=== PATIENT | female | born 1970 | race American Indian/Alaskan Native ===

== ENCOUNTER 2017-01-13 18:16 | Inpatient (IN) | payer OTHER ==
[2017-01-13 19:35] LABS: Basophils % (Auto) 0.2 % (0.0-1.8); Eosinophils % (Auto) 0.3 % (0.0-4.3); Hemoglobin 13.1 gm/dl (10.1-14.3); Mean Corpuscular HGB Conc 33 % (30-34); Mean Corpuscular Hemoglobin 29 pg (28-32); Mean Corpuscular Volume 89 fl (79-97); Platelet Count 341 K/mm3 (140-440); Red Blood Count 4.49 M/mm3 (3.65-5.03); Red Cell Distribution Width 12.8 % (13.2-15.2); White Blood Count 12.2 K/mm3 (4.5-11.0)
[2017-01-13 19:55] LABS: Alanine Aminotransferase 56 units/L (7-56); Albumin 3.9 g/dL (3.9-5); Albumin/Globulin Ratio 1.1 %; Alkaline Phosphatase 82 units/L (35-129); Anion Gap 16 mmol/L; Blood Urea Nitrogen 11 mg/dL (7-17); Calcium 9.2 mg/dL (8.4-10.2); Carbon Dioxide 27 mmol/L (22-30); Chloride 102.3 mmol/L (98-107); Glucose 158 mg/dL (65-100); Sodium 141 mmol/L (137-145); Total Protein 7.3 g/dL (6.3-8.2)
[2017-01-13 20:08] LABS: Lipase 1034 units/L (13-60)
[2017-01-13] MEDS ORDERED: MORPHINE IV ONE (23:58)
[2017-01-13] MEDS ORDERED: NACL 0.9% 1000 ML 1,000 ML IV ONE (23:58)
[2017-01-13] MEDS ORDERED: ZOFRAN IV ONE (23:58)
--- NOTE | 2017-01-14 00:01 | Emergency Department Report ---
HPI - General Chief Complaint: Abdominal Pain Time Seen by Provider: 01/13/17 23:57 - HPI HPI: 46-year-old -[place] female presents to the ED with epigastric pain, radiating to her periumbilical area, this started today around known. Patient states history of GERD but this pain seems to be much worse and does not resolve. She described the pain as 7 out of 10, sharp without alleviating factors. The pain get worse when she moves. Patient complains of nausea but no vomiting. Denies dysuria or increased urinary frequency. ED Past Medical Hx - Past Medical History Previous Medical History?: No Hx Hypertension: Yes - Surgical History Past Surgical History?: Yes Additional Surgical History: HYSTERECTOMY - Social History Smoking Status: Never Smoker Substance Use Type: None - Medications Home Medications: Home Medications Medication Instructions Recorded Confirmed Last Taken Type No Known Home Medications [No 01/14/17 01/14/17 Unknown History Reported Home Medications] ED Review of Systems ROS: Stated complaint: ABD PAINS Other details as noted in HPI Comment: All other systems reviewed and negative Cardiovascular: as per HPI Endocrine: no symptoms reported Gastrointestinal: abdominal pain, nausea Physical Exam - Physical Exam Vital Signs: Vital Signs 01/13/17 19:13 Temperature 98.6 F Pulse Rate 92 H Respiratory 16 Rate Blood Pressure 139/102 O2 Sat by Pulse 100 Oximetry Physical Exam: GENERAL: The patient is well-developed well-nourished [] HEENT: Normocephalic. Atraumatic. Extraocular motions are intact. Patient has moist mucous membranes. NECK: Supple. No meningitic signs are noted. There is no adenopathy noted. CHEST/LUNGS: Clear to auscultation. There is no respiratory distress noted. HEART/CARDIOVASCULAR: Regular. There is no tachycardia. There is no gallop rub or murmur. ABDOMEN: Tenderness from periumbilical area, no guarding, no distention SKIN: There is no rash. There is no edema. There is no diaphoresis. NEURO: The patient is awake, alert, and oriented. The patient is cooperative. The patient has no focal neurologic deficits. The patient has normal speech. Cranial nerves II through XII grossly intact, no drift. Moves all extremities well MUSCULOSKELETAL: There is no evidence of acute injury. ED Course Vital Signs 01/13/17 19:13 Temperature 98.6 F Pulse Rate 92 H Respiratory 16 Rate Blood Pressure 139/102 O2 Sat by Pulse 100 Oximetry ED Medical Decision Making - Lab Data Result diagrams: 01/13/17 19:20 01/13/17 19:20 Critical care attestation.: If time is entered above; I have spent that time in minutes in the direct care of this critically ill patient, excluding procedure time. ED Disposition Clinical Impression: Acute pancreatitis Qualifiers: Pancreatitis type: biliary Disposition: OP ADMIT IP TO THIS HOSP Is pt being admited?: Yes Does the pt Need Aspirin: No Condition: Stable Instructions: Abdominal Pain (ED) Referrals: PRIMARY CARE, [Primary Care Provider] - 3-5 Days
[2017-01-14] MEDS ORDERED: NACL ONE (00:37)
[2017-01-14 01:07] LABS: Bilirubin,Urine NEG (Negative); Blood,Urine SM (Negative); Ketones,Urine NEG (Negative); Leukocyte Esterase,Urine NEG (Negative); Mucus,Urine 2+ /HPF; Nitrite,Urine NEG (Negative); Urobilinogen,Urine < 2.0 mg/dL (<2.0)
--- NOTE | 2017-01-14 01:19 | Cat Scan Report ---
FINAL REPORT PROCEDURE: CT ABDOMEN PELVIS W CON TECHNIQUE: Computerized axial tomography of the abdomen and pelvis was performed after the IV injection of iodinated nonionic contrast. HISTORY: abd pain COMPARISON: No prior studies are available for comparison. FINDINGS: Visualized lower thorax: No significant abnormality. Liver: The liver size is normal. There is some dilatation of the biliary ductal structures.. Spleen: Normal size and attenuation. Gallbladder and biliary system: The gallbladder lumen is slightly distended. Multiple large stones are identified. Thickening of the gallbladder wall is noted. There is pericholecystic fluid. There is dilatation of the biliary ductal system including the common bile duct. No stones within the common bile duct are noted on this study.. Pancreas: There is mild dilatation of the common bile duct. The pancreatic duct appears normal. There is some fluid around the pancreas. The findings may indicate early pancreatitis.. Adrenals: Normal. Kidneys: Normal. GI tract: Stomach is normal. The small bowel has a normal caliber. No obstruction, ileus or enteritis. The cecum and appendix are normal. The colon is normal.. Lymph nodes and mesentery: Normal. Vasculature: Normal. Bladder: Normal. Reproductive organs: No pelvic masses. Peritoneum: There is fluid identified in the upper abdomen around the gallbladder and pancreas. This extends in the pericolic gutters into the pelvis.. Musculoskeletal structures: No significant abnormality. Other: None. IMPRESSION: Cholelithiasis with multiple large stones in in a slightly distended gallbladder lumen. There is some dilatation of the central biliary ductal structures and common bile duct. Fluid surrounding the gallbladder extending in the upper abdomen region around the pancreas is noted. The pancreatic size is normal. Acute pancreatitis is possible. Acute cholecystitis is possible. Further evaluation with ultrasound and possibly HIDA scan may be of benefit. Fluid identified in the upper abdomen surrounding the gallbladder and pancreas. This extends into the pericolic gutter regions bilaterally and down to the pelvis. There is no evidence of intestinal or urinary tract obstruction. No ileus or enteritis. The appendix is normal.
[2017-01-14] MEDS ORDERED: DILAUDID IV PRN ×2 (06:23→14:54)
[2017-01-14] MEDS ORDERED: ZOFRAN IV PRN (06:24)
[2017-01-14] MEDS ORDERED: TYLENOL PR PRN (06:24)
[2017-01-14] MEDS ORDERED: NACL 0.9% 1000 ML 1,000 ML IV SCH (07:00)
--- NOTE | 2017-01-14 07:37 | Admit Criteria Form ---
Admission Criteria Documentation: PANCREATITIS Clinical Indications for Admission to Inpatient Care (Place 'X' for any and all applicable criteria): Admission is indicated for 1 or more of the following (1)(2)(3)(4): [X]I. Acute pancreatitis[A] as indicated by 2 or MORE of the following: [X]a) Abdominal pain (eg, epigastric, left upper quadrant) [X]b) Serum amylase or serum lipase greater than 3 times the upper limit of normal [ ]c) Characteristic findings from abdominal imaging (eg, pancreatic inflammation, pancreatic necrosis, peripancreatic fluid collection)[B] [ ]II. Pancreatitis (acute or chronic ) requiring inpatient care as indicated by 1 or more of the following [ ]a) Inability to maintain oral hydration Hypoxemia [ ]b) Evidence of infection (eg, fever, peripancreatic abscess) [ ]c) Severe pain requiring acute inpatient management [ ]d) Hemodynamic instability [ ]e) Hypoxemia [ ]f) Acute renal failure [ ]g) Severe electrolyte abnormalities Extended stay beyond goal length of stay may be needed for (1)(11) [ ]a) Severe acute pancreatitis (10)(19) [ ]b) Persistent symptoms, ascites, or pleural effusion [ ]c) Abdominal compartment syndrome (10) [ ]d) Late complications [ ]e) Gallstones in gallbladder [ ]f) Acute renal failure (27) The original [employer] content created by [employer] has been revised. The portions of the content which have been revised are identified through the use of italic text or in bold,and [facility] has neither reviewed nor approved the modified material.All other unmodified content is copyright [employer]. Please see references footnoted in the original [employer] edition 2016 Admission Criteria Met: Yes
--- NOTE | 2017-01-14 09:12 | History and Physical Report ---
CHIEF COMPLAINT: Abdominal pain. HISTORY OF PRESENT ILLNESS: The patient is a 46-year-old female having epigastric abdominal pain radiating to the periumbilical area and also to the back. Pain started yesterday. The patient said he thought it was gas and also the patient complained of associated nausea, but no vomiting. There is also no history of fever or chills and the patient presented to the Emergency Room. PAST MEDICAL HISTORY: Pertinent for hypertension. PAST SURGICAL HISTORY: Pertinent for hysterectomy. FAMILY HISTORY: Family history is noncontributory. SOCIAL HISTORY: The patient does not drink alcohol, does not smoke cigarettes or use illicit drugs. MEDICATIONS: The patient's home medications are not known. ALLERGIES: There are no known drug allergies. REVIEW OF SYSTEMS: CONSTITUTIONAL: There is no fever, no chills, no diaphoresis. HEENT: There is no headache or sore throat. CARDIOVASCULAR: There is no chest pain, orthopnea. RESPIRATORY: There is no shortness of breath or cough. GASTROINTESTINAL: Abdominal pain present. Nausea present. No vomiting, no diarrhea or constipation. NEUROLOGICAL: There is no numbness, no dizziness, no altered mental status. MUSCULOSKELETAL: There is no joint pain or swelling. DERMATOLOGICAL: There is no skin rash or itching. GENITOURINARY: There is no dysuria, hematuria, or flank pain. Rest of system review is normal. PHYSICAL EXAMINATION: GENERAL: At the time of exam, the patient was found to be alert, oriented x 3 and not in acute distress. VITAL SIGNS: Shows normal temperature with normal respirations and blood pressure of 138/86 with O2 sat of 100% on room air. HEENT: Showed pupils to be equal, round, reactive to light and accommodation. Extraocular muscles are intact. NECK: Supple with no JVD or carotid bruit. CARDIOVASCULAR: Show first and second heart sounds with no gallops or murmur. RESPIRATORY: Show good air entry on both sides of the lungs with no abnormal breath sounds. GASTROINTESTINAL: Show abdomen to be full, soft with generalized tenderness. No guarding or rigidity. Bowel sounds normal. NEUROLOGIC: Show no focal deficit. MUSCULOSKELETAL: Show no joint swelling or tenderness. DERMATOLOGICAL: Showing no skin rash. GENITOURINARY: Showing no costovertebral angle tenderness. PERTINENT LABORATORY DATA AND IMAGING STUDIES: The patient had a CT of the abdomen done and it was read as showing cholelithiasis with multiple large stones and a slightly distended gallbladder. There is also some dilatation of this intrabiliary ductus choledochus. There is finding of fluid surrounding the gallbladder, extending in the upper abdomen region around the pancreas and the radiologist say that the pancreatic size is normal. Admitting diagnosis of possible acute pancreatitis and also possible acute cholecystitis. DIAGNOSES: 1. Acute pancreatitis. 2. Acute cholecystitis. 3. Gallstones. PLAN: The patient will be admitted to medical floor and will be on IV Dilaudid 1 mg every 2 hours as needed for pain. The patient will be on IV Levaquin 750 mg daily and IV metronidazole 500 mg q.8h. The patient will also be on IV Zofran 4 mg every 6 hours as needed for nausea and vomiting. The patient will be on pantoprazole 40 mg daily and will remain n.p.o.. The patient will be on IV normal saline at 150 mL an hour and will possibly have surgical consult along the line for treatment of gallstone pancreatitis and gallstone cholecystitis. The patient will be on Tylenol 650 mg rectally as needed for fever and headache. JOB# [id number] OCN/NTS
[2017-01-14] MEDS ORDERED: PROTONIX IV SCH (10:00)
[2017-01-14] MEDS: LEVAQUIN 750MG/150ML 750 MG/150 ML BAG IV SCH (10:50)
[2017-01-14] MEDS: PEPCID IV SCH ×2 (10:50→21:22)
[2017-01-14] MEDS: HEPARIN SUB-Q SCH ×2 (10:55→21:22)
--- NOTE | 2017-01-14 17:03 | Event Note ---
Date: 01/14/17 Consult received. Patient off the floor for MRCP. Will follow-up results, and see patient in the morning. Full consult note to follow.
[2017-01-14] MEDS: ZOFRAN IV PRN ×2 (17:15→21:22)
[2017-01-14] MEDS: D5/0.45NS 1,000 ML IV SCH (17:15)
[2017-01-14] MEDS: FLAGYL 500 MG/100 ML 500 MG/100 ML BAG IV SCH ×2 (17:15→21:22)
--- NOTE | 2017-01-14 18:39 | Magnetic Resonance Report ---
FINAL REPORT EXAM: MR ABDOMEN MRCP HISTORY: CBD dilated TECHNIQUE: MRI was performed of the abdomen using the following pulse sequences: Axial: 2D FIESTA, dual echo Coronal:2D FIESTA, T1 FS PGR 3D MRCP PRIORS: CT abdomen pelvis from 01/13/2017 FINDINGS: There are 3 large stones in the gallbladder measuring 2.2, 2.4 and 2.0 CM respectively. There are also numerous small stones layering in the fundus of the gallbladder. There is dark signal in the mid to distal common bile duct with a string of beads appearance most likely representing multiple lined up stones. The common bile duct measures 7 mm in diameter. The liver, spleen and adrenal glands appear normal. There are small bilateral renal cysts. There is a small amount of peripancreatic fluid. Otherwise, the pancreas appears normal. Bones and soft tissues are unremarkable. IMPRESSION: 1. Large and small stones in the gallbladder. No evidence of acute cholecystitis. 2. Choledocholithiasis with small stones lined up in the mid to distal common bile duct. The common bile duct is not significantly dilated. 3. Evidence of acute pancreatitis
[2017-01-15] MEDS: FLAGYL 500 MG/100 ML 500 MG/100 ML BAG IV SCH (05:52)
[2017-01-15] MEDS: LEVAQUIN 750MG/150ML 750 MG/150 ML BAG IV SCH (09:51)
[2017-01-15] MEDS: HEPARIN SUB-Q SCH ×2 (09:51→22:13)
[2017-01-15] MEDS: D5/0.45NS 1,000 ML IV SCH (09:52)
[2017-01-15] MEDS: PEPCID IV SCH ×2 (09:52→22:13)
--- NOTE | 2017-01-15 10:34 | Gastroenterology Consultation ---
<SAVANA SHANE - Last Filed: 01/15/17 10:34> History of Present Illness - Reason for Consult Consult date: 01/15/17 dilated CBD Requesting physician: MARIAN AGUDELO - History of Present Illness Patient is a 46 y/o female who presented to the ER with c/o epigastric pain and N/V. She was admitted with acute biliary pancreatitis. CT of abd revealed cholelithiasis and distended CBD. This morning pt was resting in bed, no acute distress. Admits to continued N/V and epigastric pain that have improved but not resolved with medications. Pain is described as sharp and radiates across her abdomen. Abd soft, nondistended. TTP in epigastric, RUQ, and JUQ. Denies fever, wt loss, jaundice, hematemesis, melena, diarrhea, constipation, or hematochezia. No ETOH abuse. No hx or Fhx of liver disease. PMH significant for HTN. Past History Past Medical History: GERD, hypertension Past Surgical History: hysterectomy Social history: lives with family. denies: smoking, alcohol abuse Medications and Allergies Allergies Allergy/AdvReac Type Severity Reaction Status Date / Time No Known Allergies Allergy Verified 01/14/17 00:42 Home Medications Medication Instructions Recorded Confirmed Last Taken Type No Known Home Medications [No 01/14/17 01/14/17 Unknown History Reported Home Medications] Active Meds: Active Medications Acetaminophen (Tylenol) 650 mg HI Q4H PRN PRN Reason: For Pain/Fever/Headache Famotidine (Pepcid) 20 mg IV BID [facility] Last Admin: 01/15/17 09:52 Dose: 20 mg Heparin Sodium (Porcine) (Heparin) 5,000 unit SUB-Q Q12HR [facility] Last Admin: 01/15/17 09:51 Dose: 5,000 unit Hydromorphone HCl (Dilaudid) 0.5 mg IV Q3H PRN PRN Reason: Pain , Severe (7-10) Dextrose/Sodium Chloride (D5/0.45ns) 1,000 mls @ 75 mls/hr IV DIRECT [facility] Last Admin: 01/15/17 09:52 Dose: 75 mls/hr Piperacillin Sod/Tazobactam Sod (Zosyn/Ns 3.375gm/50ml) 3.375 gm in 50 mls @ 100 mls/hr IV Q8HR DEVYN PRN Reason: Protocol Ondansetron HCl (Zofran) 4 mg IV Q4H PRN PRN Reason: Nausea And Vomiting Last Admin: 01/14/17 21:22 Dose: 4 mg Review of Systems - Review of Systems All systems: negative Gastrointestinal: abdominal pain, nausea, vomiting Exam - Constitutional Vital Signs: Temp Pulse Resp BP Pulse Ox 99.3 F 88 18 131/85 98 01/15/17 08:45 01/15/17 08:45 01/15/17 08:45 01/15/17 08:45 01/15/17 08:45 General appearance: no acute distress, obese - EENT Eyes: PERRL, EOM intact ENT: hearing intact - Neck Neck: supple, normal ROM - Respiratory Respiratory: bilateral: CTA - Cardiovascular Rhythm: regular Heart Sounds: Present: S1 & S2 Extremities: No edema - Gastrointestinal General gastrointestinal: Present: soft, tender (epigastric, RUQ, LUQ), non- distended, normal bowel sounds - Integumentary Integumentary: Present: warm, dry - Neurologic Neurological: alert and oriented x3 - Labs CBC & Chem 7: 01/13/17 19:20 01/13/17 19:20 Assessment and Plan 1.choledocholithiasis 2.acute biliary pancreatitis -Temp 99.3 -WBC-12.2 -Lipase-1034 -AST-46, ALT 56 -T.woody 0.30 -CT abd- revealed cholelithiasis with distended CBD -MRCP- revealed choledocholithiasis, acute pancreatitis, and cholelithiasis but no evidence of cholecystitis -continue supportive care with IVFs, antimedics, pain medication, and f/u labs -Keep NPO -will d/c levaquin and flagyl and place on zosyn -will order repeat am labs -will consider ERCP in am, depending on status of pancreatitis -will follow <DARA TURCIOS - Last Filed: 01/15/17 16:13> Medications and Allergies Active Meds: Active Medications Acetaminophen (Tylenol) 650 mg HI Q4H PRN PRN Reason: For Pain/Fever/Headache Famotidine (Pepcid) 20 mg IV BID [facility] Last Admin: 01/15/17 09:52 Dose: 20 mg Heparin Sodium (Porcine) (Heparin) 5,000 unit SUB-Q Q12HR DEVYN Last Admin: 01/15/17 09:51 Dose: 5,000 unit Hydromorphone HCl (Dilaudid) 0.5 mg IV Q3H PRN PRN Reason: Pain , Severe (7-10) Dextrose/Sodium Chloride (D5/0.45ns) 1,000 mls @ 75 mls/hr IV DIRECT DEVYN Last Admin: 01/15/17 09:52 Dose: 75 mls/hr Piperacillin Sod/Tazobactam Sod (Zosyn/Ns 3.375gm/50ml) 3.375 gm in 50 mls @ 100 mls/hr IV Q6HR DEVYN PRN Reason: Protocol Last Admin: 01/15/17 12:00 Dose: 100 mls/hr Ondansetron HCl (Zofran) 4 mg IV Q4H PRN PRN Reason: Nausea And Vomiting Last Admin: 01/14/17 21:22 Dose: 4 mg Exam - Constitutional Vital Signs: Temp Pulse Resp BP Pulse Ox 99.3 F 88 18 131/85 98 01/15/17 08:45 01/15/17 08:45 01/15/17 08:45 01/15/17 08:45 01/15/17 08:45 - Labs CBC & Chem 7: 01/13/17 19:20 01/13/17 19:20 Assessment and Plan Patient seen and examined. Agree with note by Savana Shane. Patient presenting with biliary pancreatitis. MRCP with small retained CBD stones, along with gallstones. Liver enzymes unremarkable on 01/13, will repeat labs. Low suspicion for cholangitis, although would cont empiric abx for time being ( mild elevation in wbc and low grade fever although may be related to acute pancreatitis). Will need eventual CCY, and likely ERCP (currently non-urgent). Cont IVF's and supportive care for acute pancreatitis. Trial of CLD, and NPO at midnight. Timing of procedure based on f/u labs and clinical course.
[2017-01-15] MEDS: ZOSYN/NS 3.375GM/50ML 3.375 GM/50 ML BAG IV SCH ×3 (12:00→23:31)
--- NOTE | 2017-01-15 12:05 | Progress Note ---
Assessment and Plan Assessment and plan: Patient is a 46-year-old woman who presents with right-sided abdominal pain was found to have acute pancreatitis -Choledocholithiasis without acute cholecystitis: consulted GI, surgery -Acute peritonitis: Bowel rest/npo and IV fluids and IV pain medicine -GERD: treat with PPI -HTN: iv antihypertensives prn -DVT prophylaxis: sq heparin full code History Interval history: Patient was seen and examined. Follow-up on current diagnosis/abdominal pains. Overnight uneventful. Patient denies any chest pain, shortness breath, nausea /vomiting or severe headaches. Imaging, nursing note, chart, labs and old chart reviewed. Discussed with patient. Hospitalist Physical - Physical exam Narrative exam: GEN: WDWN, NAD, AWAKE, ALERT, ORIENTATED HEENT: NCAT, EOMI, PERRL, OP Clear NECK: supple, no adenopathy, no thyromegaly, no JVD CVS/HEART: RRR, NORMAL S1S2, NO JVD, pulses present bilaterally CHEST/LUNGS: CTA B, Symmetrical chest expansion, good air entry bilaterally GI/Abdomen: soft, nondistended, mild right-sided tenderness good bowel sounds, no guarding or rebound /Bladder: no suprapubic tenderness, no CVA or paraspinal tenderness EXT/Skin: no c/c/e, no significant edema or obvious rash MSK: FROM x 4 Neuro: CN 2-12 grossly intact, no new focal deficits Psych: calm - Constitutional Vitals: Temp Pulse Resp BP Pulse Ox 99.3 F 88 18 131/85 98 01/15/17 08:45 01/15/17 08:45 01/15/17 08:45 01/15/17 08:45 01/15/17 08:45 Results - Labs CBC & Chem 7: 01/13/17 19:20 01/13/17 19:20 Labs: Laboratory Last Values WBC 12.2 K/mm3 (4.5-11.0) H 01/13/17 19:20 RBC 4.49 M/mm3 (3.65-5.03) 01/13/17 19:20 Hgb 13.1 gm/dl (10.1-14.3) 01/13/17 19:20 Hct 40.0 % (30.3-42.9) 01/13/17 19:20 MCV 89 fl (79-97) 01/13/17 19:20 MCH 29 pg (28-32) 01/13/17 19:20 MCHC 33 % (30-34) 01/13/17 19:20 RDW 12.8 % (13.2-15.2) L 01/13/17 19:20 Plt Count 341 K/mm3 (140-440) 01/13/17 19:20 Lymph % (Auto) 16.8 % (13.4-35.0) 01/13/17 19:20 [place] % (Auto) 3.2 % (0.0-7.3) 01/13/17 19:20 Eos % (Auto) 0.3 % (0.0-4.3) 01/13/17 19:20 Baso % (Auto) 0.2 % (0.0-1.8) 01/13/17 19:20 Lymph # 2.1 K/mm3 (1.2-5.4) 01/13/17 19:20 [place] # 0.4 K/mm3 (0.0-0.8) 01/13/17 19:20 Eos # 0.0 K/mm3 (0.0-0.4) 01/13/17 19:20 Baso # 0.0 K/mm3 (0.0-0.1) 01/13/17 19:20 Seg Neutrophils % 79.5 % (40.0-70.0) H 01/13/17 19:20 Seg Neutrophils # 9.7 K/mm3 (1.8-7.7) H 01/13/17 19:20 Sodium 141 mmol/L (137-145) 01/13/17 19:20 Potassium 4.0 mmol/L (3.6-5.0) 01/13/17 19:20 Chloride 102.3 mmol/L (98-107) 01/13/17 19:20 Carbon Dioxide 27 mmol/L (22-30) 01/13/17 19:20 Anion Gap 16 mmol/L 01/13/17 19:20 BUN 11 mg/dL (7-17) 01/13/17 19:20 Creatinine 0.5 mg/dL (0.7-1.2) L 01/13/17 19:20 Estimated GFR > 60 ml/min 01/13/17 19:20 BUN/Creatinine Ratio 22.00 % 01/13/17 19:20 Glucose 158 mg/dL (65-100) H 01/13/17 19:20 Calcium 9.2 mg/dL (8.4-10.2) 01/13/17 19:20 Total Bilirubin 0.30 mg/dL (0.1-1.2) 01/13/17 19:20 AST 46 units/L (5-40) H 01/13/17 19:20 ALT 56 units/L (7-56) 01/13/17 19:20 Alkaline Phosphatase 82 units/L (35-129) 01/13/17 19:20 Total Protein 7.3 g/dL (6.3-8.2) 01/13/17 19:20 Albumin 3.9 g/dL (3.9-5) 01/13/17 19:20 Albumin/Globulin Ratio 1.1 % 01/13/17 19:20 Lipase 1034 units/L (13-60) H 01/13/17 19:20 Urine Color Yellow (Yellow) 01/14/17 00:25 Urine Turbidity Clear (Clear) 01/14/17 00:25 Urine pH 5.0 (5.0-7.0) 01/14/17 00:25 Ur Specific [place] 1.028 (1.003-1.030) 01/14/17 00:25 Urine Protein 100 mg/dl mg/dL (Negative) 01/14/17 00:25 Urine Glucose (UA) Neg mg/dL (Negative) 01/14/17 00:25 Urine Ketones Neg mg/dL (Negative) 01/14/17 00:25 Urine Blood Sm (Negative) 01/14/17 00:25 Urine Nitrite Neg (Negative) 01/14/17 00:25 Urine Bilirubin Neg (Negative) 01/14/17 00:25 Urine Urobilinogen < 2.0 mg/dL (<2.0) 01/14/17 00:25 Ur Leukocyte Esterase Neg (Negative) 01/14/17 00:25 Urine WBC (Auto) 3.0 /HPF (0.0-6.0) 01/14/17 00:25 Urine RBC (Auto) 3.0 /HPF (0.0-6.0) 01/14/17 00:25 U Epithel Cells (Auto) 2.0 /HPF (0-13.0) 01/14/17 00:25 Urine Mucus 2+ /HPF 01/14/17 00:25
[2017-01-15] MEDS ORDERED: PROTONIX IV SCH (13:00)
[2017-01-16] MEDS: D5/0.45NS 1,000 ML IV SCH ×2 (01:58→16:15)
[2017-01-16 05:07] LABS: Basophils % (Auto) 0.3 % (0.0-1.8); Eosinophils % (Auto) 0.8 % (0.0-4.3); Hemoglobin 11.4 gm/dl (10.1-14.3); Mean Corpuscular HGB Conc 33 % (30-34); Mean Corpuscular Hemoglobin 29 pg (28-32); Mean Corpuscular Volume 88 fl (79-97); Platelet Count 290 K/mm3 (140-440); Red Blood Count 3.99 M/mm3 (3.65-5.03); Red Cell Distribution Width 12.8 % (13.2-15.2); White Blood Count 10.4 K/mm3 (4.5-11.0)
[2017-01-16 05:15] LABS: Alanine Aminotransferase 24 units/L (7-56); Albumin 3.4 g/dL (3.9-5); Alkaline Phosphatase 57 units/L (35-129); Anion Gap 15 mmol/L; Blood Urea Nitrogen 5 mg/dL (7-17); Calcium 8.6 mg/dL (8.4-10.2); Carbon Dioxide 25 mmol/L (22-30); Chloride 103.4 mmol/L (98-107); Glucose 127 mg/dL (65-100); Lipase 37 units/L (13-60); Potassium 3.5 mmol/L (3.6-5.0); Sodium 140 mmol/L (137-145); Total Protein 6.8 g/dL (6.3-8.2)
[2017-01-16 05:18] LABS: INR 1.38 (0.87-1.13)
[2017-01-16] MEDS: ZOSYN/NS 3.375GM/50ML 3.375 GM/50 ML BAG IV SCH ×3 (05:24→18:44)
[2017-01-16] MEDS: HEPARIN SUB-Q SCH (10:12)
[2017-01-16] MEDS: ZOFRAN IV PRN ×2 (10:12→18:55)
--- NOTE | 2017-01-16 11:38 | Gastroenterology Progress Note ---
Assessment and Plan - Patient Problems (1) Acute gallstone pancreatitis Current Visit: Yes Status: Acute Plan to address problem: The patient has gallstone pancreatitis and likely has retained CBD stones given ductal dilation. Pancreatitis is mild and improving rapidly. She will need ERCP /papillotomy in the next few days, possibly tomorrow. I discussed the nature of this procedure, details of the technique, benefits, purpose and risks including but not limited to worsened/severe pancreatitis, perforation, bleeding , infection and independent risks of anesthesia. She is in agreement. Patient will need non urgent lap cholecystectomy and should have surgical consultation per hospitalist at this time. Subjective Date of service: 01/16/17 Principal diagnosis: Gallstone pancreatitis Interval history: The patient reports feeling much better. Pain level is 2-3 out of 10 today. Has nausea. No vomiting. Objective - Constitutional Vitals: Temp Pulse Resp BP Pulse Ox 99.1 F 74 18 111/59 98 01/16/17 05:30 01/16/17 10:24 01/16/17 10:24 01/16/17 08:02 01/16/17 08:02 General appearance: no acute distress - EENT ENT: hearing intact, clear oral mucosa, dentition normal - Neck Neck: supple, normal ROM - Respiratory Respiratory effort: normal Respiratory: bilateral: CTA - Cardiovascular Rhythm: regular - Extremities Extremities: pulses intact, No edema, normal color, Full ROM - Gastrointestinal General gastrointestinal: Present: soft, tender (Epigastric tenderness, no rebound), non-distended, normal bowel sounds - Genitourinary Female Genitourinary: deferred - Neurologic Neurological: alert and oriented x3 - Labs CBC & Chem 7: 01/16/17 04:35 01/16/17 04:35 Labs: Laboratory Results - last 24 hr 01/16/17 01/16/17 01/16/17 04:35 04:35 04:35 WBC 10.4 RBC 3.99 Hgb 11.4 Hct 35.0 MCV 88 MCH 29 MCHC 33 RDW 12.8 L Plt Count 290 Lymph % (Auto) 21.6 [place] % (Auto) 5.2 Eos % (Auto) 0.8 Baso % (Auto) 0.3 Lymph # 2.2 [place] # 0.5 Eos # 0.1 Baso # 0.0 Seg Neutrophils % 72.1 H Seg Neutrophils # 7.5 PT 17.7 H INR 1.38 H Sodium 140 Potassium 3.5 L Chloride 103.4 Carbon Dioxide 25 Anion Gap 15 BUN 5 L Creatinine 0.5 L Estimated GFR > 60 BUN/Creatinine Ratio 10.00 Glucose 127 H Calcium 8.6 Total Bilirubin 0.50 AST 17 ALT 24 Alkaline Phosphatase 57 C-Reactive Protein 6.60 H Total Protein 6.8 Albumin 3.4 L Albumin/Globulin Ratio 1.0 Lipase 37
[2017-01-16] MEDS: PEPCID IV SCH ×2 (12:30→21:37)
--- NOTE | 2017-01-16 13:31 | Progress Note ---
Assessment and Plan Assessment and plan: Patient is a 46-year-old woman who presents with right-sided abdominal pain was found to have acute pancreatitis -Choledocholithiasis without acute cholecystitis: consulted GI, surgery -Acute peritonitis: Bowel rest/npo and IV fluids and IV pain medicine -GERD: treat with PPI -HTN: iv antihypertensives prn -DVT prophylaxis: sq heparin full code 01/16/17 per GI, Dr. Toth (1) Acute gallstone pancreatitis Current Visit: Yes Status: Acute Plan to address problem: The patient has gallstone pancreatitis and likely has retained CBD stones given ductal dilation. Pancreatitis is mild and improving rapidly. She will need ERCP /papillotomy in the next few days, possibly tomorrow. I discussed the nature of this procedure, details of the technique, benefits, purpose and risks including but not limited to worsened/severe pancreatitis, perforation, bleeding , infection and independent risks of anesthesia. She is in agreement. Patient will need non urgent lap cholecystectomy and should have surgical consultation per hospitalist at this time." Consulted Surgery History Interval history: Patient was seen and examined. Follow-up on current diagnosis/abdominal pains, still present RUQ. Overnight uneventful. Patient denies any chest pain, shortness breath, nausea/vomiting or severe headaches. Imaging, nursing note, chart, labs and old chart reviewed. Discussed with patient. Hospitalist Physical - Physical exam Narrative exam: GEN: WDWN, NAD, AWAKE, ALERT, ORIENTATED HEENT: NCAT, EOMI, PERRL, OP Clear NECK: supple, no adenopathy, no thyromegaly, no JVD CVS/HEART: RRR, NORMAL S1S2, NO JVD, pulses present bilaterally CHEST/LUNGS: CTA B, Symmetrical chest expansion, good air entry bilaterally GI/Abdomen: soft, nondistended, mild right-sided tenderness good bowel sounds, no guarding or rebound /Bladder: no suprapubic tenderness, no CVA or paraspinal tenderness EXT/Skin: no c/c/e, no significant edema or obvious rash MSK: FROM x 4 Neuro: CN 2-12 grossly intact, no new focal deficits Psych: calm - Constitutional Vitals: Temp Pulse Resp BP Pulse Ox 99.1 F 74 18 111/59 98 01/16/17 05:30 01/16/17 10:24 01/16/17 10:24 01/16/17 08:02 01/16/17 08:02 Results - Labs CBC & Chem 7: 01/16/17 04:35 01/16/17 04:35 Labs: Laboratory Last Values WBC 10.4 K/mm3 (4.5-11.0) 01/16/17 04:35 RBC 3.99 M/mm3 (3.65-5.03) 01/16/17 04:35 Hgb 11.4 gm/dl (10.1-14.3) 01/16/17 04:35 Hct 35.0 % (30.3-42.9) 01/16/17 04:35 MCV 88 fl (79-97) 01/16/17 04:35 MCH 29 pg (28-32) 01/16/17 04:35 MCHC 33 % (30-34) 01/16/17 04:35 RDW 12.8 % (13.2-15.2) L 01/16/17 04:35 Plt Count 290 K/mm3 (140-440) 01/16/17 04:35 Lymph % (Auto) 21.6 % (13.4-35.0) 01/16/17 04:35 [place] % (Auto) 5.2 % (0.0-7.3) 01/16/17 04:35 Eos % (Auto) 0.8 % (0.0-4.3) 01/16/17 04:35 Baso % (Auto) 0.3 % (0.0-1.8) 01/16/17 04:35 Lymph # 2.2 K/mm3 (1.2-5.4) 01/16/17 04:35 [place] # 0.5 K/mm3 (0.0-0.8) 01/16/17 04:35 Eos # 0.1 K/mm3 (0.0-0.4) 01/16/17 04:35 Baso # 0.0 K/mm3 (0.0-0.1) 01/16/17 04:35 Seg Neutrophils % 72.1 % (40.0-70.0) H 01/16/17 04:35 Seg Neutrophils # 7.5 K/mm3 (1.8-7.7) 01/16/17 04:35 PT 17.7 Sec. (12.2-14.9) H 01/16/17 04:35 INR 1.38 (0.87-1.13) H 01/16/17 04:35 Sodium 140 mmol/L (137-145) 01/16/17 04:35 Potassium 3.5 mmol/L (3.6-5.0) L 01/16/17 04:35 Chloride 103.4 mmol/L (98-107) 01/16/17 04:35 Carbon Dioxide 25 mmol/L (22-30) 01/16/17 04:35 Anion Gap 15 mmol/L 01/16/17 04:35 BUN 5 mg/dL (7-17) L 01/16/17 04:35 Creatinine 0.5 mg/dL (0.7-1.2) L 01/16/17 04:35 Estimated GFR > 60 ml/min 01/16/17 04:35 BUN/Creatinine Ratio 10.00 % 01/16/17 04:35 Glucose 127 mg/dL (65-100) H 01/16/17 04:35 Calcium 8.6 mg/dL (8.4-10.2) 01/16/17 04:35 Total Bilirubin 0.50 mg/dL (0.1-1.2) 01/16/17 04:35 AST 17 units/L (5-40) 01/16/17 04:35 ALT 24 units/L (7-56) 01/16/17 04:35 Alkaline Phosphatase 57 units/L (35-129) 01/16/17 04:35 C-Reactive Protein 6.60 mg/dL (0.00-1.30) H 01/16/17 04:35 Total Protein 6.8 g/dL (6.3-8.2) 01/16/17 04:35 Albumin 3.4 g/dL (3.9-5) L 01/16/17 04:35 Albumin/Globulin Ratio 1.0 % 01/16/17 04:35 Lipase 37 units/L (13-60) 01/16/17 04:35 Urine Color Yellow (Yellow) 01/14/17 00:25 Urine Turbidity Clear (Clear) 01/14/17 00:25 Urine pH 5.0 (5.0-7.0) 01/14/17 00:25 Ur Specific [place] 1.028 (1.003-1.030) 01/14/17 00:25 Urine Protein 100 mg/dl mg/dL (Negative) 01/14/17 00:25 Urine Glucose (UA) Neg mg/dL (Negative) 01/14/17 00:25 Urine Ketones Neg mg/dL (Negative) 01/14/17 00:25 Urine Blood Sm (Negative) 01/14/17 00:25 Urine Nitrite Neg (Negative) 01/14/17 00:25 Urine Bilirubin Neg (Negative) 01/14/17 00:25 Urine Urobilinogen < 2.0 mg/dL (<2.0) 01/14/17 00:25 Ur Leukocyte Esterase Neg (Negative) 01/14/17 00:25 Urine WBC (Auto) 3.0 /HPF (0.0-6.0) 01/14/17 00:25 Urine RBC (Auto) 3.0 /HPF (0.0-6.0) 01/14/17 00:25 U Epithel Cells (Auto) 2.0 /HPF (0-13.0) 01/14/17 00:25 Urine Mucus 2+ /HPF 01/14/17 00:25
[2017-01-17] MEDS: ZOSYN/NS 3.375GM/50ML 3.375 GM/50 ML BAG IV SCH ×4 (02:28→17:06)
[2017-01-17 06:35] LABS: Hematocrit 32.7 % (30.3-42.9); Hemoglobin 11.3 gm/dl (10.1-14.3); Mean Corpuscular HGB Conc 34 % (30-34); Mean Corpuscular Hemoglobin 30 pg (28-32); Mean Corpuscular Volume 87 fl (79-97); Platelet Count 279 K/mm3 (140-440); Red Blood Count 3.76 M/mm3 (3.65-5.03); Red Cell Distribution Width 12.5 % (13.2-15.2); White Blood Count 9.1 K/mm3 (4.5-11.0)
[2017-01-17] MEDS: D5/0.45NS 1,000 ML IV SCH ×3 (06:37→20:58)
[2017-01-17 06:47] LABS: INR 1.33 (0.87-1.13)
[2017-01-17 06:48] LABS: Partial Thromboplastin Time 36.7 Sec. (24.2-36.6)
[2017-01-17 06:56] LABS: Anion Gap 16 mmol/L; BUN/Creatinine Ratio 8.33; Blood Urea Nitrogen 5 mg/dL (7-17); Calcium 8.8 mg/dL (8.4-10.2); Carbon Dioxide 26 mmol/L (22-30); Chloride 102.8 mmol/L (98-107); Glucose 125 mg/dL (65-100); Lipase 55 units/L (13-60); Potassium 3.3 mmol/L (3.6-5.0); Sodium 141 mmol/L (137-145)
--- NOTE | 2017-01-17 08:11 | Gastroenterology Progress Note ---
Assessment and Plan - Patient Problems (1) Acute gallstone pancreatitis Current Visit: Yes Status: Acute Plan to address problem: Stable and improving. ERCP is planned for tomorrow AM. Surgical consult pending per Dr. Khan Subjective Date of service: 01/17/17 Principal diagnosis: Gallstone pancreatitis Interval history: The patient feels better today. Minimal discomfort. Tolerating clear liquids. Objective - Constitutional Vitals: Temp Pulse Resp BP Pulse Ox 99.0 F 74 18 130/81 98 01/17/17 07:32 01/17/17 07:32 01/17/17 07:32 01/17/17 07:32 01/17/17 07:32 General appearance: no acute distress - Neck Neck: supple, normal ROM - Respiratory Respiratory effort: normal Respiratory: bilateral: CTA - Cardiovascular Rhythm: regular - Gastrointestinal General gastrointestinal: Present: soft, non-tender, non-distended, normal bowel sounds Rectal Exam: deferred - Neurologic Neurological: alert and oriented x3 - Labs CBC & Chem 7: 01/17/17 06:06 01/17/17 06:06 Labs: Laboratory Results - last 24 hr 01/17/17 01/17/17 01/17/17 06:06 06:06 06:06 WBC 9.1 RBC 3.76 Hgb 11.3 Hct 32.7 MCV 87 MCH 30 MCHC 34 RDW 12.5 L Plt Count 279 PT 17.2 H INR 1.33 H APTT 36.7 H Sodium 141 Potassium 3.3 L Chloride 102.8 Carbon Dioxide 26 Anion Gap 16 BUN 5 L Creatinine 0.6 L Estimated GFR > 60 BUN/Creatinine Ratio 8.33 Glucose 125 H Calcium 8.8 Lipase 55
[2017-01-17] MEDS ORDERED: POTASSIUM CHLORIDE PO ONE (08:45)
--- NOTE | 2017-01-17 08:47 | Consultation ---
History of Present Illness Consult date: 01/17/17 Reason for consult: other (choledocholithiasis,gallstone pancreatitis) Chief complaint: abd pain - History of present illness History of present illness: 46 year old female admitted with gallstone pancreatitis, residual choledochlithiasis, scheduled for ERCP today, she will need lap demi after ERCP (ideally prior to discharge). Pt was in bathroom when I came by. Past History Past Medical History: GERD, hypertension Past Surgical History: hysterectomy Social history: lives with family. denies: smoking, alcohol abuse Medications and Allergies Allergies Allergy/AdvReac Type Severity Reaction Status Date / Time No Known Allergies Allergy Verified 01/14/17 00:42 Home Medications Medication Instructions Recorded Confirmed Last Taken Type No Known Home Medications [No 01/14/17 01/14/17 Unknown History Reported Home Medications] Active Meds: Active Medications Acetaminophen (Tylenol) 650 mg MS Q4H PRN PRN Reason: For Pain/Fever/Headache Famotidine (Pepcid) 20 mg IV BID DEVYN Last Admin: 01/16/17 21:37 Dose: 20 mg Hydromorphone HCl (Dilaudid) 0.5 mg IV Q3H PRN PRN Reason: Pain , Severe (7-10) Dextrose/Sodium Chloride (D5/0.45ns) 1,000 mls @ 75 mls/hr IV DIRECT DEVYN Last Admin: 01/17/17 06:37 Dose: 75 mls/hr Piperacillin Sod/Tazobactam Sod (Zosyn/Ns 3.375gm/50ml) 3.375 gm in 50 mls @ 100 mls/hr IV Q6HR DEVYN PRN Reason: Protocol Last Admin: 01/17/17 06:46 Dose: 100 mls/hr Ondansetron HCl (Zofran) 4 mg IV Q4H PRN PRN Reason: Nausea And Vomiting Last Admin: 01/16/17 18:55 Dose: 4 mg Potassium Chloride (Potassium Chloride) 40 meq PO ONCE ONE Stop: 01/17/17 08:46 Review of Systems - Constitutional other (abd pain) Exam Vital Signs Temp Pulse Resp BP Pulse Ox 98.6 F 92 H 16 139/102 100 01/13/17 19:13 01/13/17 19:13 01/13/17 19:13 01/13/17 19:13 01/13/17 19:13 Results - Labs 01/17/17 06:06 01/17/17 06:06 Abnormal lab results 01/17/17 01/17/17 01/17/17 Range/Units 06:06 06:06 06:06 RDW 12.5 L (13.2-15.2) % PT 17.2 H (12.2-14.9) Sec. INR 1.33 H (0.87-1.13) APTT 36.7 H (24.2-36.6) Sec. Potassium 3.3 L (3.6-5.0) mmol/L BUN 5 L (7-17) mg/dL Creatinine 0.6 L (0.7-1.2) mg/dL Glucose 125 H (65-100) mg/dL Diabetes panel 01/17/17 Range/Units 06:06 Sodium 141 (137-145) mmol/L Potassium 3.3 L (3.6-5.0) mmol/L Chloride 102.8 (98-107) mmol/L Carbon Dioxide 26 (22-30) mmol/L BUN 5 L (7-17) mg/dL Creatinine 0.6 L (0.7-1.2) mg/dL Glucose 125 H (65-100) mg/dL Calcium 8.8 (8.4-10.2) mg/dL Calcium panel 01/17/17 Range/Units 06:06 Calcium 8.8 (8.4-10.2) mg/dL Pituitary panel 01/17/17 Range/Units 06:06 Sodium 141 (137-145) mmol/L Potassium 3.3 L (3.6-5.0) mmol/L Chloride 102.8 (98-107) mmol/L Carbon Dioxide 26 (22-30) mmol/L BUN 5 L (7-17) mg/dL Creatinine 0.6 L (0.7-1.2) mg/dL Glucose 125 H (65-100) mg/dL Calcium 8.8 (8.4-10.2) mg/dL Adrenal panel 01/17/17 Range/Units 06:06 Sodium 141 (137-145) mmol/L Potassium 3.3 L (3.6-5.0) mmol/L Chloride 102.8 (98-107) mmol/L Carbon Dioxide 26 (22-30) mmol/L BUN 5 L (7-17) mg/dL Creatinine 0.6 L (0.7-1.2) mg/dL Glucose 125 H (65-100) mg/dL Calcium 8.8 (8.4-10.2) mg/dL Assessment and Plan gallstone pancreatitis/ residual choledocholithiasis plan ERCP first (today?) recc lap demi prior to discharge.
[2017-01-17] MEDS: PEPCID IV SCH ×2 (09:48→21:07)
--- NOTE | 2017-01-17 10:45 | Progress Note ---
Assessment and Plan Assessment and plan: Patient is a 46-year-old woman who presents with right-sided abdominal pain was found to have acute pancreatitis -Choledocholithiasis without acute cholecystitis: consulted GI, surgery -Acute peritonitis: Bowel rest/npo and IV fluids and IV pain medicine -GERD: treat with PPI -HTN: iv antihypertensives prn -DVT prophylaxis: sq heparin full code 01/16/17: per GI, Dr. Toth (1) Acute gallstone pancreatitis Current Visit: Yes Status: Acute Plan to address problem: The patient has gallstone pancreatitis and likely has retained CBD stones given ductal dilation. Pancreatitis is mild and improving rapidly. She will need ERCP /papillotomy in the next few days, possibly tomorrow. I discussed the nature of this procedure, details of the technique, benefits, purpose and risks including but not limited to worsened/severe pancreatitis, perforation, bleeding , infection and independent risks of anesthesia. She is in agreement. Patient will need non urgent lap cholecystectomy and should have surgical consultation per hospitalist at this time." 01/17/17: still NPO, ERCP pending. Will probably need lap demi after ERCP History Interval history: Patient was seen and examined. Follow-up on current diagnosis/abdominal pains, still present RUQ but with touch only now. Overnight uneventful. Patient denies any chest pain, shortness breath, vomiting or severe headaches. Imaging , nursing note, chart, labs and old chart reviewed. Discussed with patient. Still has nausea but no vomiting Hospitalist Physical - Physical exam Narrative exam: GEN: WDWN, NAD, AWAKE, ALERT, ORIENTATED HEENT: NCAT, EOMI, PERRL, OP Clear NECK: supple, no adenopathy, no thyromegaly, no JVD CVS/HEART: RRR, NORMAL S1S2, NO JVD, pulses present bilaterally CHEST/LUNGS: CTA B, Symmetrical chest expansion, good air entry bilaterally GI/Abdomen: soft, nondistended, mild right-sided tenderness good bowel sounds, no guarding or rebound /Bladder: no suprapubic tenderness, no CVA or paraspinal tenderness EXT/Skin: no c/c/e, no significant edema or obvious rash MSK: FROM x 4 Neuro: CN 2-12 grossly intact, no new focal deficits Psych: calm - Constitutional Vitals: Temp Pulse Resp BP Pulse Ox 99.0 F 74 18 130/81 98 09/03/17 07:32 01/17/17 07:32 01/17/17 07:32 01/17/17 07:32 01/17/17 07:32 Results - Labs CBC & Chem 7: 01/17/17 06:06 01/17/17 06:06 Labs: Laboratory Last Values WBC 9.1 K/mm3 (4.5-11.0) 01/17/17 06:06 RBC 3.76 M/mm3 (3.65-5.03) 01/17/17 06:06 Hgb 11.3 gm/dl (10.1-14.3) 01/17/17 06:06 Hct 32.7 % (30.3-42.9) 01/17/17 06:06 MCV 87 fl (79-97) 01/17/17 06:06 MCH 30 pg (28-32) 01/17/17 06:06 MCHC 34 % (30-34) 01/17/17 06:06 RDW 12.5 % (13.2-15.2) L 01/17/17 06:06 Plt Count 279 K/mm3 (140-440) 01/17/17 06:06 Lymph % (Auto) 21.6 % (13.4-35.0) 01/16/17 04:35 [place] % (Auto) 5.2 % (0.0-7.3) 01/16/17 04:35 Eos % (Auto) 0.8 % (0.0-4.3) 01/16/17 04:35 Baso % (Auto) 0.3 % (0.0-1.8) 01/16/17 04:35 Lymph # 2.2 K/mm3 (1.2-5.4) 01/16/17 04:35 [place] # 0.5 K/mm3 (0.0-0.8) 01/16/17 04:35 Eos # 0.1 K/mm3 (0.0-0.4) 01/16/17 04:35 Baso # 0.0 K/mm3 (0.0-0.1) 01/16/17 04:35 Seg Neutrophils % 72.1 % (40.0-70.0) H 01/16/17 04:35 Seg Neutrophils # 7.5 K/mm3 (1.8-7.7) 01/16/17 04:35 PT 17.2 Sec. (12.2-14.9) H 01/17/17 06:06 INR 1.33 (0.87-1.13) H 01/17/17 06:06 APTT 36.7 Sec. (24.2-36.6) H 01/17/17 06:06 Sodium 141 mmol/L (137-145) 01/17/17 06:06 Potassium 3.3 mmol/L (3.6-5.0) L 01/17/17 06:06 Chloride 102.8 mmol/L (98-107) 01/17/17 06:06 Carbon Dioxide 26 mmol/L (22-30) 01/17/17 06:06 Anion Gap 16 mmol/L 01/17/17 06:06 BUN 5 mg/dL (7-17) L 01/17/17 06:06 Creatinine 0.6 mg/dL (0.7-1.2) L 01/17/17 06:06 Estimated GFR > 60 ml/min 01/17/17 06:06 BUN/Creatinine Ratio 8.33 % 01/17/17 06:06 Glucose 125 mg/dL (65-100) H 01/17/17 06:06 Calcium 8.8 mg/dL (8.4-10.2) 01/17/17 06:06 Total Bilirubin 0.50 mg/dL (0.1-1.2) 01/16/17 04:35 AST 17 units/L (5-40) 01/16/17 04:35 ALT 24 units/L (7-56) 01/16/17 04:35 Alkaline Phosphatase 57 units/L (35-129) 01/16/17 04:35 C-Reactive Protein 6.60 mg/dL (0.00-1.30) H 01/16/17 04:35 Total Protein 6.8 g/dL (6.3-8.2) 01/16/17 04:35 Albumin 3.4 g/dL (3.9-5) L 01/16/17 04:35 Albumin/Globulin Ratio 1.0 % 01/16/17 04:35 Lipase 55 units/L (13-60) 01/17/17 06:06 Urine Color Yellow (Yellow) 01/14/17 00:25 Urine Turbidity Clear (Clear) 01/14/17 00:25 Urine pH 5.0 (5.0-7.0) 01/14/17 00:25 Ur Specific [place] 1.028 (1.003-1.030) 01/14/17 00:25 Urine Protein 100 mg/dl mg/dL (Negative) 01/14/17 00:25 Urine Glucose (UA) Neg mg/dL (Negative) 01/14/17 00:25 Urine Ketones Neg mg/dL (Negative) 01/14/17 00:25 Urine Blood Sm (Negative) 01/14/17 00:25 Urine Nitrite Neg (Negative) 01/14/17 00:25 Urine Bilirubin Neg (Negative) 01/14/17 00:25 Urine Urobilinogen < 2.0 mg/dL (<2.0) 01/14/17 00:25 Ur Leukocyte Esterase Neg (Negative) 01/14/17 00:25 Urine WBC (Auto) 3.0 /HPF (0.0-6.0) 01/14/17 00:25 Urine RBC (Auto) 3.0 /HPF (0.0-6.0) 01/14/17 00:25 U Epithel Cells (Auto) 2.0 /HPF (0-13.0) 01/14/17 00:25 Urine Mucus 2+ /HPF 01/14/17 00:25
--- NOTE | 2017-01-17 19:33 | Anesthesia Consultation ---
Anesthesia Consult and Med Hx Date of service: 01/18/17 - Airway Anesthetic Teeth Evaluation: Good ROM Head & Neck: Adequate Mental/Hyoid Distance: Adequate Mallampati Class: Class II Intubation Access Assessment: Probably Good - Pulmonary Exam CTA: Yes - Cardiac Exam Cardiac Exam: RRR - Pre-Operative Health Status ASA Pre-Surgery Classification: ASA2 Proposed Anesthetic Plan: MAC - Pre-Anesthesia Comment Pre-Anesthesia Comments: gallstone pancreatitis, choledocholithiasis. Pt has a chipped lateral incisor. - Cardiovascular System Hx Hypertension: Yes - Gastrointestinal Hx Gastroesophageal Reflux Disease: Yes
[2017-01-18] MEDS: ZOSYN/NS 3.375GM/50ML 3.375 GM/50 ML BAG IV SCH ×4 (00:23→21:16)
[2017-01-18 05:41] LABS: Hematocrit 32.4 % (30.3-42.9); Hemoglobin 11.1 gm/dl (10.1-14.3); Mean Corpuscular HGB Conc 34 % (30-34); Mean Corpuscular Hemoglobin 30 pg (28-32); Mean Corpuscular Volume 87 fl (79-97); Platelet Count 290 K/mm3 (140-440); Red Blood Count 3.74 M/mm3 (3.65-5.03); Red Cell Distribution Width 12.3 % (13.2-15.2); White Blood Count 8.8 K/mm3 (4.5-11.0)
[2017-01-18 05:42] LABS: Anion Gap 15 mmol/L; Blood Urea Nitrogen 4 mg/dL (7-17); Calcium 8.8 mg/dL (8.4-10.2); Carbon Dioxide 24 mmol/L (22-30); Chloride 105.2 mmol/L (98-107); Glucose 122 mg/dL (65-100); Potassium 3.4 mmol/L (3.6-5.0); Sodium 141 mmol/L (137-145)
[2017-01-18] MEDS ORDERED: NACL 0.9% 100 ML ONE ×2 (09:51→10:35)
[2017-01-18] MEDS ORDERED: WATER FOR IRRIG STERILE IR ONE (09:52)
[2017-01-18] MEDS ORDERED: GLUCAGEN ONE (09:52)
[2017-01-18] MEDS: PEPCID IV SCH ×2 (09:53→23:49)
--- NOTE | 2017-01-18 09:53 | Progress Note ---
Assessment and Plan Assessment and plan: Patient is a 46-year-old woman who presents with right-sided abdominal pain was found to have acute pancreatitis -Choledocholithiasis without acute cholecystitis: consulted GI, surgery -Acute peritonitis: Bowel rest/npo and IV fluids and IV pain medicine -GERD: treat with PPI -HTN: iv antihypertensives prn -DVT prophylaxis: sq heparin full code 01/16/17: per GI, Dr. Toth (1) Acute gallstone pancreatitis Current Visit: Yes Status: Acute Plan to address problem: The patient has gallstone pancreatitis and likely has retained CBD stones given ductal dilation. Pancreatitis is mild and improving rapidly. She will need ERCP /papillotomy in the next few days, possibly tomorrow. I discussed the nature of this procedure, details of the technique, benefits, purpose and risks including but not limited to worsened/severe pancreatitis, perforation, bleeding , infection and independent risks of anesthesia. She is in agreement. Patient will need non urgent lap cholecystectomy and should have surgical consultation per hospitalist at this time." 01/17/17: still NPO, ERCP pending. Will probably need lap demi after ERCP 01/18/17: ERCP today. Replace potassium. Ordered am labs History Interval history: Patient was seen and examined. Follow-up on current diagnosis/abdominal pains, still present RUQ but with touch only now. Overnight uneventful. Patient denies any chest pain, shortness breath, vomiting or severe headaches. Imaging , nursing note, chart, labs and old chart reviewed. Discussed with patient. Still has nausea but no vomiting Hospitalist Physical - Physical exam Narrative exam: GEN: WDWN, NAD, AWAKE, ALERT, ORIENTATED HEENT: NCAT, EOMI, PERRL, OP Clear NECK: supple, no adenopathy, no thyromegaly, no JVD CVS/HEART: RRR, NORMAL S1S2, NO JVD, pulses present bilaterally CHEST/LUNGS: CTA B, Symmetrical chest expansion, good air entry bilaterally GI/Abdomen: soft, nondistended, mild right-sided tenderness good bowel sounds, no guarding or rebound /Bladder: no suprapubic tenderness, no CVA or paraspinal tenderness EXT/Skin: no c/c/e, no significant edema or obvious rash MSK: FROM x 4 Neuro: CN 2-12 grossly intact, no new focal deficits Psych: calm - Constitutional Vitals: Temp Pulse Resp BP Pulse Ox 99.1 F 78 16 144/86 98 01/18/17 07:53 01/18/17 07:53 01/18/17 07:53 01/18/17 07:53 01/18/17 07:53 Results - Labs CBC & Chem 7: 01/18/17 04:48 01/18/17 04:48 Labs: Laboratory Last Values WBC 8.8 K/mm3 (4.5-11.0) 01/18/17 04:48 RBC 3.74 M/mm3 (3.65-5.03) 01/18/17 04:48 Hgb 11.1 gm/dl (10.1-14.3) 01/18/17 04:48 Hct 32.4 % (30.3-42.9) 01/18/17 04:48 MCV 87 fl (79-97) 01/18/17 04:48 MCH 30 pg (28-32) 01/18/17 04:48 MCHC 34 % (30-34) 01/18/17 04:48 RDW 12.3 % (13.2-15.2) L 01/18/17 04:48 Plt Count 290 K/mm3 (140-440) 01/18/17 04:48 Lymph % (Auto) 21.6 % (13.4-35.0) 01/16/17 04:35 [place] % (Auto) 5.2 % (0.0-7.3) 01/16/17 04:35 Eos % (Auto) 0.8 % (0.0-4.3) 01/16/17 04:35 Baso % (Auto) 0.3 % (0.0-1.8) 01/16/17 04:35 Lymph # 2.2 K/mm3 (1.2-5.4) 01/16/17 04:35 [place] # 0.5 K/mm3 (0.0-0.8) 01/16/17 04:35 Eos # 0.1 K/mm3 (0.0-0.4) 01/16/17 04:35 Baso # 0.0 K/mm3 (0.0-0.1) 01/16/17 04:35 Seg Neutrophils % 72.1 % (40.0-70.0) H 01/16/17 04:35 Seg Neutrophils # 7.5 K/mm3 (1.8-7.7) 01/16/17 04:35 PT 17.2 Sec. (12.2-14.9) H 01/17/17 06:06 INR 1.33 (0.87-1.13) H 01/17/17 06:06 APTT 36.7 Sec. (24.2-36.6) H 01/17/17 06:06 Sodium 141 mmol/L (137-145) 01/18/17 04:48 Potassium 3.4 mmol/L (3.6-5.0) L 01/18/17 04:48 Chloride 105.2 mmol/L (98-107) 01/18/17 04:48 Carbon Dioxide 24 mmol/L (22-30) 01/18/17 04:48 Anion Gap 15 mmol/L 01/18/17 04:48 BUN 4 mg/dL (7-17) L 01/18/17 04:48 Creatinine 0.5 mg/dL (0.7-1.2) L 01/18/17 04:48 Estimated GFR > 60 ml/min 01/18/17 04:48 BUN/Creatinine Ratio 8.00 % 01/18/17 04:48 Glucose 122 mg/dL (65-100) H 01/18/17 04:48 Calcium 8.8 mg/dL (8.4-10.2) 01/18/17 04:48 Total Bilirubin 0.50 mg/dL (0.1-1.2) 01/16/17 04:35 AST 17 units/L (5-40) 01/16/17 04:35 ALT 24 units/L (7-56) 01/16/17 04:35 Alkaline Phosphatase 57 units/L (35-129) 01/16/17 04:35 C-Reactive Protein 6.60 mg/dL (0.00-1.30) H 01/16/17 04:35 Total Protein 6.8 g/dL (6.3-8.2) 01/16/17 04:35 Albumin 3.4 g/dL (3.9-5) L 01/16/17 04:35 Albumin/Globulin Ratio 1.0 % 01/16/17 04:35 Lipase 55 units/L (13-60) 01/17/17 06:06 Urine Color Yellow (Yellow) 01/14/17 00:25 Urine Turbidity Clear (Clear) 01/14/17 00:25 Urine pH 5.0 (5.0-7.0) 01/14/17 00:25 Ur Specific [place] 1.028 (1.003-1.030) 01/14/17 00:25 Urine Protein 100 mg/dl mg/dL (Negative) 01/14/17 00:25 Urine Glucose (UA) Neg mg/dL (Negative) 01/14/17 00:25 Urine Ketones Neg mg/dL (Negative) 01/14/17 00:25 Urine Blood Sm (Negative) 01/14/17 00:25 Urine Nitrite Neg (Negative) 01/14/17 00:25 Urine Bilirubin Neg (Negative) 01/14/17 00:25 Urine Urobilinogen < 2.0 mg/dL (<2.0) 01/14/17 00:25 Ur Leukocyte Esterase Neg (Negative) 01/14/17 00:25 Urine WBC (Auto) 3.0 /HPF (0.0-6.0) 01/14/17 00:25 Urine RBC (Auto) 3.0 /HPF (0.0-6.0) 01/14/17 00:25 U Epithel Cells (Auto) 2.0 /HPF (0-13.0) 01/14/17 00:25 Urine Mucus 2+ /HPF 01/14/17 00:25
[2017-01-18] MEDS ORDERED: VERSED IV ONE (09:56)
[2017-01-18] MEDS ORDERED: SUBLIMAZE ONE (09:56)
[2017-01-18] MEDS ORDERED: DIPRIVAN 10 MG/ML IV ONE ×3 (09:59→10:36)
--- NOTE | 2017-01-18 10:24 | Anesthesia Day of Surgery ---
Anesthesia Day of Surgery - Day of Surgery Patient Examined: Yes Patient H&P Reviewed: Yes Patient is NPO: Yes
[2017-01-18] MEDS ORDERED: NACL 0.9% 1000 ML 1,000 ML IV SCH (11:00)
--- NOTE | 2017-01-18 11:29 | Operative Report ---
Operative Report Operative Report: Date of procedure: 01/18/2017 Preprocedure diagnoses: Gallstone pancreatitis with suspected common bile duct stones on MRCP Postprocedure diagnoses: Small filling defect in common bile duct and no stone retrieved after papillotomy and balloon sweeping of the duct. Procedure: Endoscopic retrograde cholangiopancreatography with papillotomy and balloon sweeping of the duct Medications: Propofol under monitored anesthesia care-see separate records for details Estimated blood loss: 0 Endoscopist: Dash Toth M.D. After careful discussion of the nature and purpose of the procedure, risks, benefits, and alternatives consent was obtained. The patient was placed in the supine position on the fluoroscopy table and medicated per anesthesia. The UCAN 570 side-viewing therapeutic videoscope was carefully passed per orum into the esophagus and advanced into the stomach. The stomach was insufflated with air and the contents aspirated clear. The scope was initially retroflexed. The cardia and fundus were normal. The scope was then straightened and further advanced. The antrum is normal. The scope was passed through the pylorus into the duodenum. The duodenal bulb, ampulla of Vater and descending duodenum were normal in appearance. Next, the cannulatome was utilized to intubate the pancreatic duct. The pancreatic duct appeared [normal] . The common bile duct was then cannulated without difficulty. The common bile duct appeared [to have a small filling defect approximately 2 mm in size]. A guidewire was inserted deeply into the common bile duct without difficulty. Papillotomy was then performed followed by balloon sweeping of the duct x 2. No definite stone was extracted over and filling defect may have been a small bubble versus stone having been chaste up to the cystic duct. The papillotomy site was felt to be adequate for any small stones to assess through the ampulla. The procedure was well-tolerated overall. Conclusions: Normal pancreatic duct. Suspected small stone in the common bile duct. Status post papillotomy and balloon sweeping of the duct. Plan: Advance diet. Laparoscopic cholecystectomy per surgical timing. Electronically signed: Dash Toth M.D.
--- NOTE | 2017-01-18 11:31 | Post Anesthesia Evaluation ---
- Post Anesthesia Evaluation Patient Participated: Yes Airway Patent: Yes Stable Respiratory Function: Yes Nausea/Vomiting: No Temp > 96.8F: Yes Pain Manageable: Yes Adequeate Hydration: Yes Anesthesia Complications: No
--- NOTE | 2017-01-18 13:29 | Fluoroscopy Report ---
Retrograde pyelogram: This exam was performed in the absence of attending radiologist. The catheter was successfully placed into the CBD. Injection of contrast demonstrated good opacification of the CBD as well as the common hepatic bile duct and central intrahepatic branches. No persistent filling abnormality identified. The bile ducts do not appear dilated. There is partial filling of the gallbladder. There is partial filling of a nondilated pancreatic duct. According to the procedure description the CBD was swept with a balloon without stone removal. A papillotomy was performed.
[2017-01-18] MEDS: D5/0.45NS 1,000 ML IV SCH (13:49)
[2017-01-18] MEDS: KCL 10MEQ/100ML 10 MEQ/100 ML BAG IV SCH ×2 (13:50→15:57)
[2017-01-19] MEDS: ZOSYN/NS 3.375GM/50ML 3.375 GM/50 ML BAG IV SCH ×2 (01:14→06:44)
[2017-01-19 06:34] LABS: Hematocrit 32.6 % (30.3-42.9); Hemoglobin 11.4 gm/dl (10.1-14.3); Mean Corpuscular HGB Conc 35 % (30-34); Mean Corpuscular Hemoglobin 30 pg (28-32); Mean Corpuscular Volume 86 fl (79-97); Platelet Count 332 K/mm3 (140-440); Red Blood Count 3.79 M/mm3 (3.65-5.03); Red Cell Distribution Width 12.6 % (13.2-15.2); White Blood Count 8.8 K/mm3 (4.5-11.0)
[2017-01-19 06:52] LABS: Anion Gap 15 mmol/L; Blood Urea Nitrogen 3 mg/dL (7-17); Carbon Dioxide 24 mmol/L (22-30); Chloride 101.2 mmol/L (98-107); Glucose 112 mg/dL (65-100); Potassium 3.2 mmol/L (3.6-5.0); Sodium 137 mmol/L (137-145)
[2017-01-19] MEDS: D5/0.45NS 1,000 ML IV SCH (07:20)
--- NOTE | 2017-01-19 07:23 | Event Note ---
Date: 01/19/17 I have taken a lot of time explaining the operative indications for lap demi following ERCP for choledocholithiasis, pt does not want to make decision at this time, I have explained there is a 19-20 percent risk of recurrence of common duct stone in 6 weeks, therefore this is not an emergency, she can be discharged home or get another surgeon to discuss an offer lap demi, I will sign off, case cancelled , I will be happy to follow up patient as outpatient or she can see another surgeon, recc adv diet and discharge home or get second opinion. There is really no reason she has to stay in hospital.I will sign off.
--- NOTE | 2017-01-19 09:38 | Gastroenterology Progress Note ---
<KAILA SHANE - Last Filed: 01/19/17 09:40> Assessment and Plan 1.acute gallstone pancreatitis -afebrile -WBC-8.8-WNL -Lipase-WNL -LFTs-WNL -s/p ERCP yesterday- revealed small filling defect in CBD but no stone retrieved after papillotomy and balloon sweeping of the duct -would recommend an outpatient non-urgent lap cholecystectomy -continue supportive care -advance diet as tolerated -no further GI recommendations at this time, pt is okay to be d/c from GI standpoint -will sign off Subjective Date of service: 01/19/17 Principal diagnosis: Gallstone pancreatitis Interval history: Patient sitting up in bed eating breakfast. No acute distress and family at bedside. She states she is feeling much better and is without complaints. Denies abd pain, fever, or N/V. Objective - Constitutional Vitals: Temp Pulse Resp BP Pulse Ox 98.2 F 86 15 151/90 99 01/19/17 07:33 01/19/17 07:33 01/19/17 07:33 01/19/17 07:33 01/19/17 07:33 General appearance: no acute distress, obese - EENT Eyes: PERRL, EOM intact ENT: hearing intact - Respiratory Respiratory: bilateral: CTA - Cardiovascular Rhythm: regular Heart Sounds: Present: S1 & S2 - Extremities Extremities: No edema - Gastrointestinal General gastrointestinal: Present: soft, non-tender, non-distended, normal bowel sounds - Integumentary Integumentary: Present: warm, dry - Neurologic Neurological: alert and oriented x3 - Labs CBC & Chem 7: 01/19/17 04:00 01/19/17 04:00 Labs: Laboratory Results - last 24 hr 01/19/17 01/19/17 04:00 04:00 WBC 8.8 RBC 3.79 Hgb 11.4 Hct 32.6 MCV 86 MCH 30 MCHC 35 H RDW 12.6 L Plt Count 332 Sodium 137 Potassium 3.2 L Chloride 101.2 Carbon Dioxide 24 Anion Gap 15 BUN 3 L Creatinine 0.4 L Estimated GFR > 60 BUN/Creatinine Ratio 7.50 Glucose 112 H Calcium 9.0 <DARA TURCIOS - Last Filed: 01/19/17 16:28> Assessment and Plan Agree with note by Kaila Shane. Will need outpatient CCY. No further recommendations from GI at this time. Patient can f/u in GI clinic after discharge. Objective - Constitutional Vitals: Temp Pulse Resp BP Pulse Ox 99.3 F 86 15 151/89 100 01/19/17 14:35 01/19/17 14:35 01/19/17 14:35 01/19/17 14:35 01/19/17 14:35 - Labs CBC & Chem 7: 01/19/17 04:00 01/19/17 04:00 Labs: Laboratory Results - last 24 hr 01/19/17 01/19/17 04:00 04:00 WBC 8.8 RBC 3.79 Hgb 11.4 Hct 32.6 MCV 86 MCH 30 MCHC 35 H RDW 12.6 L Plt Count 332 Sodium 137 Potassium 3.2 L Chloride 101.2 Carbon Dioxide 24 Anion Gap 15 BUN 3 L Creatinine 0.4 L Estimated GFR > 60 BUN/Creatinine Ratio 7.50 Glucose 112 H Calcium 9.0
--- NOTE | 2017-01-19 09:46 | Discharge Summary ---
Providers - Providers Date of Admission: 01/14/17 06:20 Date of discharge: 01/19/17 Attending physician: JOSE ANGEL DE LA ROSA 01/14/17 14:55 Consult to Physician [CONS] Routine Consulting Provider: DARA ZALDIVAR Reason For Exam: cholelithiasis, and CBD dilated Place consult to:: Dr. Dara Zaldivar Notified:: OFFICE Phone number called:: [phone] Was contact made?: Yes If yes, spoke with:: KAMILLA Time called:: 16:12 Comment:: SHIVANI NOTIFIED 01/16/17 13:31 Consult to Physician [CONS] Routine Consulting Provider: FAB MAST Reason For Exam: GB disease, Choledolithiasis Place consult to:: Pearl LEWIS Notified:: DR. 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 2.Follow up with Dr. Mast or Surgeon of choice in 1 week to consider cholecystectomy. Follow up with: PRIMARY CARE, [Primary Care Provider] - 3-5 Days Prescriptions: Ciprofloxacin HCl [Ciprofloxacin TAB] 500 mg PO BID #14 tablet Famotidine [Pepcid] 20 mg PO BID #30 tablet metroNIDAZOLE [Flagyl] 500 mg PO Q8HR #21 tablet
[2017-01-19] MEDS ORDERED: PEPCID PO SCH (10:00)
[2017-01-19] MEDS: POTASSIUM CHLORIDE PO SCH ×2 (10:25→12:48)
[2017-01-19 14:37] VITALS: BP 151/89
== END 2017-01-19 15:30 | disposition home or self-care (01) | DRG 438 ==
LOC: ED 18:16 → 3A 01-14 06:20
PROVIDERS: ADMIT Internal Medicine; ATTEND Internal Medicine
PROC: 0F798ZZ Dilation of Common Bile Duct, Via Natural or Artificial Opening Endoscopic (ICD-10-PCS; principal; 2017-01-18)
PROC: BF131ZZ Fluoroscopy of Gallbladder and Bile Ducts using Low Osmolar Contrast (ICD-10-PCS; 2017-01-18)
DX: K85.10 Biliary acute pancreatitis without necrosis or infection (principal); K65.0 Generalized (acute) peritonitis; K21.9 Gastro-esophageal reflux disease without esophagitis; I10 Essential (primary) hypertension; Z90.710 Acquired absence of both cervix and uterus; K80.42 Calculus of bile duct with acute cholecystitis without obstruction
CPT/HCPCS: 36415; 74177; 74181; 74330; 80048; 80053; 81001; 83690; 85025; 85027; 85610; 85730; 86140; 96374; 96375; 96376; C1726; J1170; J1610; J1644; J1956; J2250; J2270; J2405; J2543; J2704; J3010; J3480; J7030; Q9967

== ENCOUNTER 2019-07-25 14:22 | Emergency (ER) | payer OTHER ==
--- NOTE | 2019-07-25 15:21 | Event Note ---
ED Screening Note Date of service: 07/25/19 Time: 15:20 ED Screening Note: 49 y o f presents with coughing, body aches and fever x yesterday no sick contant no med reflif theraflu This initial assessment/diagnostic orders/clinical plan/treatment(s) is/are subject to change based on patients health status, clinical progression and re- assessment by fellow clinical providers in the ED. Further treatment and workup at subsequent clinical providers discretion. Patient/guardian urged not to elope from the ED as their condition may be serious if not clinically assessed and managed. Initial orders include: cxr acc eval
--- NOTE | 2019-07-25 15:40 | XRay Report ---
CHEST 2 VIEWS INDICATION / CLINICAL INFORMATION: cough/fever. COMPARISON: 2 views of the chest from 07/21/2016. FINDINGS: SUPPORT DEVICES: None. HEART / MEDIASTINUM: No significant abnormality. LUNGS / PLEURA: No significant pulmonary or pleural abnormality. No pneumothorax. ADDITIONAL FINDINGS: No significant additional findings. IMPRESSION: 1. No acute abnormality of the chest. Signer Name: Mark Vora MD Signed: 07/25/2019 3:36 PM Workstation Name: [id number]
[2019-07-25] MEDS ORDERED: IBUPROFEN 800 MG TAB PO ONE (20:23)
[2019-07-25 21:27] LABS: Basophils % (Auto) 0.3 % (0.0-1.8); Eosinophils # (Auto) 0.3 K/mm3 (0.0-0.4); Hematocrit 35.1 % (30.3-42.9); Hemoglobin 12.1 gm/dl (10.1-14.3); Lymphocytes % (Auto) 30.9 % (13.4-35.0); Mean Corpuscular HGB Conc 34 % (30-34); Mean Corpuscular Volume 88 fl (79-97); Monocytes # (Auto) 0.7 K/mm3 (0.0-0.8); Monocytes % (Auto) 11.2 % (0.0-7.3); Platelet Count 319 K/mm3 (140-440); Red Blood Count 4.01 M/mm3 (3.65-5.03); Red Cell Distribution Width 12.8 % (13.2-15.2)
[2019-07-25 21:47] LABS: Alanine Aminotransferase 16 units/L (7-56); BUN/Creatinine Ratio 17; Blood Urea Nitrogen 10 mg/dL (7-17); Calcium 9.4 mg/dL (8.4-10.2); Hemolysis Index 6
--- NOTE | 2019-07-25 21:55 | Emergency Department Report ---
- General Chief Complaint: Upper Respiratory Infection Stated Complaint: COLD SYMPTOMS Time Seen by Provider: 07/25/19 20:20 Source: patient Mode of arrival: Ambulatory Limitations: No Limitations - History of Present Illness Initial Comments: Ms. Wade is a 49 y/ o aaf who presents with coughing, body aches and fever x yesterday. states no sick no sick contants, symptoms are not relieved by otc theraflu. Symptoms include bodyache, cough, chills, sore throat,fever. No max temp recorded at home, temp: 99.8 noted in triage. Patient states cough is productive of thick clear. Body aches rated at 4/10. There is chest wall pain with cough. Patient denies shortness of breath, wheezing, or nausea /vomiting. Patient is tolerating p.o. intake. She has history of hypertension. Patient advised not to take [id number] cold medications and to inquire with pharmacist for Coricidin brands for people with hypertension. MD Complaint: fever, cough, sore throat, rhinorrhea, nasal congestion Onset/Timin -: days(s) Severity: moderate Severity scale (0 -10): 4 Quality: aching Consistency: constant Improves With: nothing Worsens With: activity Associated Symptoms: fever, chills, rhinorrhea, nasal congestion, sore throat, cough, chest pain. denies: shortness of breath, nausea, vomiting, dysuria, ear pain Treatments Prior to Arrival: "cold medicine" - Related Data Previous Rx's Medication Instructions Recorded Last Taken Type Ciprofloxacin HCl [Ciprofloxacin 500 mg PO BID #14 tablet 01/19/17 Unknown Rx TAB] Famotidine [Pepcid] 20 mg PO BID #30 tablet 01/19/17 Unknown Rx HYDROcodone/APAP 5-325 [[place] 1 each PO Q6HR PRN #12 tablet 01/19/17 Unknown Rx 5/325] metroNIDAZOLE [Flagyl] 500 mg PO Q8HR #21 tablet 01/19/17 Unknown Rx Ciprofloxacin HCl [Ciprofloxacin 500 mg PO Q12HR #20 tab 03/22/17 Unknown Rx TAB] Ondansetron [Zofran Odt] 4 mg PO Q8HR PRN #12 tab.rapdis 07/26/19 Unknown Rx Allergies Allergy/AdvReac Type Severity Reaction Status Date / Time Sulfa (Sulfonamide Allergy Rash Verified 07/25/19 20:47 Antibiotics) ED Review of Systems ROS: Stated complaint: COLD SYMPTOMS Other details as noted in HPI Constitutional: chills, fever, malaise Eyes: as per HPI ENT: throat pain, congestion Respiratory: cough. denies: shortness of breath, wheezing Cardiovascular: denies: chest pain, palpitations Endocrine: no symptoms reported Gastrointestinal: denies: abdominal pain, nausea, vomiting, diarrhea Genitourinary: denies: urgency, dysuria, frequency, hematuria, discharge Musculoskeletal: denies: back pain, joint swelling, arthralgia Skin: denies: rash, lesions Neurological: denies: headache, weakness, paresthesias Psychiatric: denies: anxiety, depression Hematological/Lymphatic: denies: easy bleeding, easy bruising ED Past Medical Hx - Past Medical History Previous Medical History?: Yes Hx Hypertension: Yes - Surgical History Past Surgical History?: Yes Additional Surgical History: HYSTERECTOMY - Social History Smoking Status: Never Smoker Substance Use Type: None - Medications Home Medications: Home Medications Medication Instructions Recorded Confirmed Last Taken Type Ciprofloxacin HCl [Ciprofloxacin 500 mg PO BID #14 tablet 01/19/17 Unknown Rx TAB] Famotidine [Pepcid] 20 mg PO BID #30 tablet 01/19/17 Unknown Rx HYDROcodone/APAP 5-325 [[place] 1 each PO Q6HR PRN #12 tablet 01/19/17 Unknown Rx 5/325] metroNIDAZOLE [Flagyl] 500 mg PO Q8HR #21 tablet 01/19/17 Unknown Rx Ciprofloxacin HCl [Ciprofloxacin 500 mg PO Q12HR #20 tab 03/22/17 Unknown Rx TAB] Ondansetron [Zofran Odt] 4 mg PO Q8HR PRN #12 tab.rapdis 07/26/19 Unknown Rx ED Physical Exam - General Limitations: No Limitations General appearance: alert, in no apparent distress - Head Head exam: Present: atraumatic, normocephalic - Eye Eye exam: Present: normal appearance, PERRL, EOMI Pupils: Present: normal accommodation - ENT ENT exam: Present: normal exam, mucous membranes moist, TM's normal bilaterally, normal external ear exam - Expanded ENT Exam Expanded Throat exam: Positive: tonsillar erythema, other (uvula midline ). Negative: tonsillomegaly, tonsillar exudate, R peritonsillar mass, L peritonsillar mass - Neck Neck exam: Present: normal inspection, full ROM. Absent: tenderness, lymphadenopathy, thyromegaly - Respiratory Respiratory exam: Present: normal lung sounds bilaterally, chest wall tenderness (left lateral ). Absent: respiratory distress, wheezes, stridor - Cardiovascular Cardiovascular Exam: Present: regular rate, normal rhythm, normal heart sounds. Absent: systolic murmur, diastolic murmur, rubs, gallop - GI/Abdominal GI/Abdominal exam: Present: soft, normal bowel sounds. Absent: distended, tenderness, bruit, hernia - Rectal Rectal exam: Present: deferred - Extremities Exam Extremities exam: Present: normal inspection, full ROM. Absent: tenderness - Back Exam Back exam: Present: normal inspection, full ROM, CVA tenderness (R). Absent: tenderness, CVA tenderness (L) - Neurological Exam Neurological exam: Present: alert, oriented X3, CN II-XII intact, normal gait - Psychiatric Psychiatric exam: Present: normal affect, normal mood - Skin Skin exam: Present: warm, dry, intact, normal color. Absent: rash ED Course Vital Signs 07/25/19 07/26/19 15:20 02:50 Temperature 99.8 F H 97.9 F Pulse Rate 107 H 78 Respiratory 18 16 Rate Blood Pressure 140/92 Blood Pressure 129/86 [Right] O2 Sat by Pulse 98 98 Oximetry ED Medical Decision Making - Lab Data Result diagrams: 07/25/19 20:55 07/25/19 20:55 Labs 07/25/19 07/25/19 20:55 20:55 WBC 6.3 RBC 4.01 Hgb 12.1 Hct 35.1 MCV 88 MCH 30 MCHC 34 RDW 12.8 L Plt Count 319 Lymph % (Auto) 30.9 [place] % (Auto) 11.2 H Eos % (Auto) 5.0 H Baso % (Auto) 0.3 Lymph # 2.0 [place] # 0.7 Eos # 0.3 Baso # 0.0 Seg Neutrophils % 52.6 Seg Neutrophils # 3.3 Sodium 138 Potassium 3.9 Chloride 98.9 Carbon Dioxide 25 Anion Gap 18 BUN 10 Creatinine 0.6 L Estimated GFR > 60 BUN/Creatinine Ratio 17 Glucose 139 H Calcium 9.4 Total Bilirubin 0.30 AST 17 ALT 16 Alkaline Phosphatase 78 Total Protein 7.5 Albumin 4.0 Albumin/Globulin Ratio 1.1 Rapid strep and rapid flu cultures are negative - EKG Data EKG shows normal: sinus rhythm Rate: normal - EKG Data When compared to previous EKG there are: no significant change Interpretation: unchanged when compared t (07/21/16), LVH (NSR, LVH, Anterior Q waves No ST Elevated ME, no change from previous ekg dated 07/21/2016) - Radiology Data Radiology results: report reviewed, image reviewed Findings Reporting MD: Mark Vora Dictation Time: July 25, 2019 14:36 Professional Caster: Not available Fire Pilot Date: CHEST 2 VIEWS INDICATION / CLINICAL INFORMATION: cough/fever. COMPARISON: 2 views of the chest from 07/21/2016. FINDINGS: SUPPORT DEVICES: None. HEART / MEDIASTINUM: No significant abnormality. LUNGS / PLEURA: No significant pulmonary or pleural abnormality. No pneumothorax. ADDITIONAL FINDINGS: No significant additional findings. IMPRESSION: 1. No acute abnormality of the chest. Signer Name: Mark Vora MD Signed: 07/25/2019 2:36 PM Workstation Name: [email or web address] - Medical Decision Making Patient advises all symptoms are resolved she is tolerating p.o. intake without nausea vomiting. Labs noted normal, no change in EKG since previous of July 2016, heart rate is improved, no fever at this time,Diagnosis viral syndrome, will DC to home with prescription for , zofran prn, pt will continue to hydrate as directed ,follow up with primary care doctor in 2-3 days. pt verbalized agreement and understanding of discharge plan. Critical care attestation.: If time is entered above; I have spent that time in minutes in the direct care of this critically ill patient, excluding procedure time. ED Disposition Clinical Impression: Viral syndrome Disposition: DC-01 TO HOME OR SELFCARE Is pt being admited?: No Does the pt Need Aspirin: No Condition: Stable Instructions: Viral Syndrome (ED) Prescriptions: Ondansetron [Zofran Odt] 4 mg PO Q8HR PRN #12 tab.rapdis PRN Reason: Nausea And Vomiting [facility] - 3-5 Days Forms: Work/School Release Form(ED) Time of Disposition: 03:08
[2019-07-26] MEDS: ONDANSETRON 4 MG ODT TAB PO ONE ×2 (00:18)
[2019-07-26 02:51] VITALS: BP 129/86
== END 2019-07-26 03:15 | disposition home or self-care (01) ==
LOC: ED 14:22
DX: B34.9 Viral infection, unspecified (principal); I10 Essential (primary) hypertension; Z90.710 Acquired absence of both cervix and uterus; Z79.899 Other long term (current) drug therapy; Z88.2 Allergy status to sulfonamides
CPT/HCPCS: 36415; 71046; 80053; 85025; 87116; 87400; 87430; 93005; 93010; Q0162